=== PATIENT | male | born 1955 | race Caucasian/White ===

== ENCOUNTER 2017-07-06 12:28 | Emergency (ER) | payer MEDICARE, BC ==
[2017-07-06] MEDS ORDERED: NITROGLYCERIN 0.4 MG TAB SL PRN (12:44)
[2017-07-06] MEDS ORDERED: ASPIRIN 81 MG CHEWABLE CTB PO STA (12:44)
[2017-07-06 13:02] LABS: BASOPHILS % (AUTO) 1 % (0-3); EOSINOPHILS % (AUTO) 3 % (0-9); HEMATOCRIT 44 % (39-53); MEAN CORPUSCULAR HGB CONC 33.8 gm/dl (32.0-36.0); MONOCYTES % (AUTO) 4.5 % (0-12); NEUTROPHILS % (AUTO) 61.5 % (37-80)
[2017-07-06 13:04] LABS: MEAN CORPUSCULAR VOLUME 77 fL (80-100)
[2017-07-06] MEDS: SODIUM CHLORIDE 0.9% FLUSH 10 ML SOL IV PRN ×2 (13:10→13:33)
[2017-07-06 13:19] LABS: CALCIUM 8.7 mg/dl (8.5-10.1); GLOM FILT RATE 82 mL/min (>60); POTASSIUM 3.2 mMol/L (3.5-5.1); SODIUM 138 mMol/L (136-145)
[2017-07-06] MEDS ORDERED: SOLUMEDROL 125 MG/2 ML 125 MG/2 ML PDS IV ONE (13:23)
[2017-07-06 13:28] VITALS: TEMP 98.2
[2017-07-06] MEDS ORDERED: SOLUMEDROL 125 MG/2 ML 125 MG/2 ML PDS ONE (13:28)
[2017-07-06 13:38] VITALS: PULSE 71
[2017-07-06 13:39] VITALS: BP 135/80; RESP 23; O2SAT 91
== END 2017-07-06 14:15 | disposition home or self-care (01) | DRG 103 ==
LOC: ED 12:28
DX: G43.109 Migraine with aura, not intractable, without status migrainosus (principal)
CPT/HCPCS: 70450; 80048; 84484; 85025; 93005; 99285; J2930